=== PATIENT | female | born 1985 | race Asian ===

== ENCOUNTER 2016-09-15 10:14 | Emergency (ER) | payer OTHER ==
[~2016-09-15] VITALS: Ht 160 cm; Wt 81.8 kg
[2016-09-15 11:01] LABS: BASOPHILS % (AUTO) 0.2 % (0.0-2.0); EOSINOPHILS % (AUTO) 0.3 % (1.0-6.0); HEMATOCRIT 44.6 % (36-46); HEMOGLOBIN 14.5 g/dL (12.0-16.0); LYMPHOCYTES # (AUTO) 0.7 K/uL (1.0-4.8); LYMPHOCYTES % (AUTO) 9.7 % (22.0-44.0); MEAN CORPUSCULAR HEMOGLOBIN 27.5 pg (26.0-34.0); MEAN CORPUSCULAR HGB CONC 32.6 G/dL (31.0-37.0); MEAN CORPUSCULAR VOLUME 84 fL (80-100); MONOCYTES # (AUTO) 0.5 K/uL (0.1-1.0); MONOCYTES % (AUTO) 6.9 % (2.0-9.0); NEUTROPHILS # (AUTO) 6.1 K/uL (1.8-7.7); NEUTROPHILS % (AUTO) 82.9 % (40.0-70.0); PLATELET COUNT (AUTO) 311 K/uL (150-450); RED BLOOD CELL COUNT(AUTO) 5.29 MIL/uL (4.00-5.20); RED CELL DISTRIBUTION WIDTH 13.7 % (11.5-14.5); WHITE BLOOD COUNT (AUTO) 7.4 K/uL (4.5-11.0)
[2016-09-15 11:08] LABS: ANION GAP 9 mmol/L (8-16); CALCIUM, TOTAL 8.4 mg/dL (8.8-10.5); CARBON DIOXIDE 27 mmol/L (22-29); CHLORIDE 103 mmol/L (98-107); GLOMERULAR FILTR. RATE CALC > 60 mL/min (>60); POTASSIUM 3.7 mmol/L (3.5-5.1); SODIUM SERUM 139 mmol/L (136-145); UREA NITROGEN, BLOOD 9 mg/dL (7-18)
[2016-09-15 11:16] LABS: ALANINE AMINOTRANSFERASE 28 U/L (12-78); ALBUMIN 3.7 g/dL (3.4-5.0); ASPARTATE AMINOTRANSFERASE 23 U/L (15-37); BILIRUBIN,TOTAL 0.1 mg/dL (0.1-1.0); TOTAL PROTEIN, SERUM 8.7 g/dL (6.4-8.2)
[2016-09-15] MEDS ORDERED: PANTOPRAZOLE SODIUM 40 MG DR TABLET PO ONE (13:00)
[2016-09-15] MEDS ORDERED: DONNATAL/LIDOCAINE/MAALOX 55 ML BOTTLE PO ONE (13:00)
[2016-09-15] MEDS ORDERED: ONDANSETRON HCL 4 MG TABLET PO ONE (13:00)
[2016-09-15 13:14] VITALS: BP 111/78
== END 2016-09-15 13:55 | disposition home or self-care (01) ==
LOC: EEVIPCON 10:17 → EMS 10:17
DX: R10.13 Epigastric pain (principal)
CPT/HCPCS: 36415; 80053; 81002; 83690; 84703; 85025; 99284; Q0162; Z7610

== ENCOUNTER → 2017-04-30 | Outpatient (CLI) | payer OTHER ==
[2017-04-30 12:39] LABS: APPEARANCE,URINE CLEAR (CLEAR); GLUCOSE, URINE (UA) NEGATIVE (NEGATIVE); KETONES,URINE NEGATIVE (NEGATIVE); LEUKOCYTE ESTERASE ,URINE NEGATIVE (NEGATIVE); OCCULT BLOOD,URINE NEGATIVE (NEGATIVE); PROTEIN,URINE NEGATIVE (NEGATIVE)
[2017-04-30 12:43] LABS: ADD UA MICROSCOPIC NO
[2017-04-30 12:46] LABS: HEMOGLOBIN A1C 5.7 % (4.5-6.2)
[2017-04-30 12:53] LABS: BASOPHILS % (AUTO) 0.3 % (0.0-2.0); EOSINOPHILS % (AUTO) 2.3 % (1.0-6.0); HEMATOCRIT 42.3 % (36-46); HEMOGLOBIN 14.4 g/dL (12.0-16.0); LYMPHOCYTES # (AUTO) 2.2 K/uL (1.0-4.8); LYMPHOCYTES % (AUTO) 24.8 % (22.0-44.0); MEAN CORPUSCULAR HEMOGLOBIN 29.2 pg (26.0-34.0); MEAN CORPUSCULAR VOLUME 86 fL (80-100); MONOCYTES # (AUTO) 0.6 K/uL (0.1-1.0); MONOCYTES % (AUTO) 6.6 % (2.0-9.0); NEUTROPHILS # (AUTO) 5.8 K/uL (1.8-7.7); PLATELET COUNT (AUTO) 302 K/uL (150-450); RED BLOOD CELL COUNT(AUTO) 4.93 MIL/uL (4.00-5.20); RED CELL DISTRIBUTION WIDTH 14.1 % (11.5-14.5); WHITE BLOOD COUNT (AUTO) 8.7 K/uL (4.5-11.0)
[2017-04-30 13:03] LABS: ALANINE AMINOTRANSFERASE 26 U/L (12-78); ALBUMIN 3.7 g/dL (3.4-5.0); ANION GAP 9 mmol/L (8-16); ASPARTATE AMINOTRANSFERASE 25 U/L (15-37); BILIRUBIN,TOTAL 0.4 mg/dL (0.1-1.0); CALCIUM, TOTAL 8.6 mg/dL (8.8-10.5); CARBON DIOXIDE 24 mmol/L (22-29); CHLORIDE 102 mmol/L (98-107); CREATININE 0.74 mg/dL (0.60-1.30); GLOMERULAR FILTR. RATE CALC > 60 mL/min (>60); POTASSIUM 3.8 mmol/L (3.5-5.1); SODIUM SERUM 135 mmol/L (136-145); TOTAL PROTEIN, SERUM 8.5 g/dL (6.4-8.2); UREA NITROGEN, BLOOD 7 mg/dL (7-18)
[2017-04-30 14:06] LABS: THYROID STIMULATING HORMONE 1.53 uIU/mL (0.36-3.74)
== END | disposition home or self-care (01) ==
LOC: LABPV 10:15
PROVIDERS: ATTEND Internal Medicine
DX: Z79.899 Other long term (current) drug therapy (principal)
CPT/HCPCS: 83036; 84443; 87086

== ENCOUNTER → 2017-09-02 | Outpatient (CLI) | payer OTHER ==
[2017-09-02 17:08] LABS: BASOPHILS % (AUTO) 0.4 % (0.0-2.0); EOSINOPHILS % (AUTO) 2.1 % (1.0-6.0); HEMATOCRIT 40.9 % (36-46); HEMOGLOBIN 13.4 g/dL (12.0-16.0); LYMPHOCYTES # (AUTO) 2.5 K/uL (1.0-4.8); LYMPHOCYTES % (AUTO) 30.9 % (22.0-44.0); MEAN CORPUSCULAR HEMOGLOBIN 28.1 pg (26.0-34.0); MEAN CORPUSCULAR HGB CONC 32.6 G/dL (31.0-37.0); MEAN CORPUSCULAR VOLUME 86 fL (80-100); MONOCYTES # (AUTO) 0.7 K/uL (0.1-1.0); NEUTROPHILS # (AUTO) 4.6 K/uL (1.8-7.7); NEUTROPHILS % (AUTO) 57.6 % (40.0-70.0); PLATELET COUNT (AUTO) 336 K/uL (150-450); RED BLOOD CELL COUNT(AUTO) 4.75 MIL/uL (4.00-5.20); RED CELL DISTRIBUTION WIDTH 13.9 % (11.5-14.5)
[2017-09-02 17:49] LABS: VITAMIN D,TOTAL (25-0H) 12 ng/mL (30-100)
[2017-09-02 19:21] LABS: RAPID PLASMA REAGIN NONREACTIVE (NONREACTIVE)
[2017-09-02 19:25] LABS: RUBELLA SCREEN (IGG) IMMUNE (IMMUNE)
[2017-09-03 08:07] LABS: HIV 1-2 SCREEN 4TH GEN W/RFLX Non Reactive (Non Reactive)
== END | disposition home or self-care (01) ==
LOC: LABPV 14:49
PROVIDERS: ATTEND Obstetrics & Gynecology
DX: Z31.89 Encounter for other procreative management (principal)
CPT/HCPCS: 82306; 86592; 86762; 86787; 86803; 86850; 86900; 86901; 87086; 87340; 87389; 87491; 87591

== ENCOUNTER → 2017-10-04 | Outpatient (CLI) | payer OTHER | END | disposition home or self-care (01) | LOC: RADPV 11:27 | PROVIDERS: ATTEND Internal Medicine | DX: J84.10 Pulmonary fibrosis, unspecified (principal) ==

== ENCOUNTER 2019-03-04 19:33 | Inpatient (IN) | payer OTHER ==
[~2019-03-04] VITALS: Ht 160 cm; Wt 111.1 kg
[2019-03-04] MEDS ORDERED: RINGERS SOLUTION,LACTATED 1,000 ML IV PRN (21:01)
[2019-03-04] MEDS ORDERED: METOCLOPRAMIDE HCL 5 MG/ML 2 ML VIAL IVP PRN (21:15)
[2019-03-04] MEDS ORDERED: AZITHROMYCIN 250 MG TABLET PO ONE (21:15)
[2019-03-04] MEDS ORDERED: CITRIC ACID/SODIUM CITRATE 30 ML SOLUTION UDCUP PO PRN (21:15)
[2019-03-04 21:37] LABS: BASOPHILS % (AUTO) 0.4 % (0.0-2.0); EOSINOPHILS % (AUTO) 0.7 % (1.0-6.0); HEMATOCRIT 40.8 % (36-46); HEMOGLOBIN 13.5 g/dL (12.0-16.0); LYMPHOCYTES # (AUTO) 1.9 K/uL (1.0-4.8); LYMPHOCYTES % (AUTO) 17.3 % (22.0-44.0); MEAN CORPUSCULAR HEMOGLOBIN 30.4 pg (26.0-34.0); MEAN CORPUSCULAR HGB CONC 33.2 G/dL (31.0-37.0); MEAN CORPUSCULAR VOLUME 91 fL (80-100); MONOCYTES # (AUTO) 0.9 K/uL (0.1-1.0); MONOCYTES % (AUTO) 8.5 % (2.0-9.0); NEUTROPHILS # (AUTO) 7.9 K/uL (1.8-7.7); NEUTROPHILS % (AUTO) 73.1 % (40.0-70.0); PLATELET COUNT (AUTO)-OB 255 K/uL (150-450); RED BLOOD CELL COUNT(AUTO) 4.46 MIL/uL (4.00-5.20); RED CELL DISTRIBUTION WIDTH 14.4 % (11.5-14.5)
[2019-03-04] MEDS: BETAMETHASONE SOLUSPAN 6 MG/ML 5 ML VIAL IM SCH (22:19)
[2019-03-04] MEDS: AMPICILLIN SODIUM 2 GM/NS 100 ML IV SCH (22:23)
[2019-03-04] MEDS: RINGERS SOLUTION,LACTATED 1,000 ML IV SCH ×2 (22:24→23:48)
[2019-03-04 23:11] VITALS: BP 134/80
[2019-03-04] MEDS ORDERED: PNV11TAB PO (23:15)
[2019-03-05] MEDS ORDERED: NIFEdipine 10 MG CAPSULE PO ONE ×2 (00:30→01:15)
[2019-03-05] MEDS: RINGERS SOLUTION,LACTATED 1,000 ML IV SCH ×2 (04:20→14:49)
[2019-03-05] MEDS: AMPICILLIN SODIUM 2 GM/NS 100 ML IV SCH ×4 (04:21→22:02)
[2019-03-05] MEDS: OXYGEN THERAPY IH SCH ×2 (08:00→20:00)
[2019-03-05] MEDS: BETAMETHASONE SOLUSPAN 6 MG/ML 5 ML VIAL IM SCH (22:03)
[2019-03-06] MEDS: RINGERS SOLUTION,LACTATED 1,000 ML IV SCH ×3 (00:04→16:23)
[2019-03-06] MEDS: AMPICILLIN SODIUM 2 GM/NS 100 ML IV SCH ×4 (04:25→22:35)
[2019-03-06] MEDS: OXYGEN THERAPY IH SCH ×2 (08:00→20:00)
[2019-03-06] MEDS: BETAMETHASONE SOLUSPAN 6 MG/ML 5 ML VIAL IM SCH (21:15)
[2019-03-07] MEDS: RINGERS SOLUTION,LACTATED 1,000 ML IV SCH ×3 (00:15→16:17)
[2019-03-07] MEDS: AMPICILLIN SODIUM 2 GM/NS 100 ML IV SCH ×4 (04:46→22:22)
[2019-03-07] MEDS: OXYGEN THERAPY IH SCH ×2 (08:00→20:00)
[2019-03-07 13:42] LABS: BASOPHILS % (AUTO) 0.3 % (0.0-2.0); EOSINOPHILS % (AUTO) 0.4 % (1.0-6.0); HEMATOCRIT 37.6 % (36-46); HEMOGLOBIN 12.1 g/dL (12.0-16.0); LYMPHOCYTES # (AUTO) 1.6 K/uL (1.0-4.8); LYMPHOCYTES % (AUTO) 14.3 % (22.0-44.0); MEAN CORPUSCULAR HEMOGLOBIN 29.7 pg (26.0-34.0); MEAN CORPUSCULAR HGB CONC 32.1 G/dL (31.0-37.0); MEAN CORPUSCULAR VOLUME 93 fL (80-100); MONOCYTES % (AUTO) 8.4 % (2.0-9.0); NEUTROPHILS # (AUTO) 8.7 K/uL (1.8-7.7); NEUTROPHILS % (AUTO) 76.6 % (40.0-70.0); PLATELET COUNT (AUTO)-OB 223 K/uL (150-450); RED BLOOD CELL COUNT(AUTO) 4.07 MIL/uL (4.00-5.20)
[2019-03-07] MEDS: MISOPROSTOL 25 MCG TABLET VG SCH ×2 (13:59→18:00)
[2019-03-07] MEDS: BETAMETHASONE SOLUSPAN 6 MG/ML 5 ML VIAL IM SCH (21:15)
[2019-03-08] MEDS: RINGERS SOLUTION,LACTATED 1,000 ML IV SCH ×3 (02:36→21:01)
[2019-03-08] MEDS: MISOPROSTOL 25 MCG TABLET VG SCH ×2 (02:36→04:48)
[2019-03-08] MEDS: AMPICILLIN SODIUM 2 GM/NS 100 ML IV SCH (04:48)
[2019-03-08] MEDS ORDERED: ROPIVACAINE HCL/PF 0.2% 100 ML ED ONE ×2 (05:21→08:54)
[2019-03-08] MEDS ORDERED: OXYTOCIN 30 UNITS/LACT RINGERS 500 ML IV PRN (05:42)
[2019-03-08] MEDS: FentaNYL CITRATE-PF 100 MCG/2 ML VIAL IVP PRN ×2 (07:58→08:06)
[2019-03-08] MEDS: OXYGEN THERAPY IH SCH ×2 (08:00→20:00)
[2019-03-08] MEDS ORDERED: MINERAL OIL 30 ML UDCUP ONE (09:15)
[2019-03-08] MEDS ORDERED: LIDOCAINE/PF 1% 30 ML VIAL ONE (09:25)
[2019-03-08] MEDS ORDERED: MINERAL OIL 30 ML UDCUP VG ONE (10:15)
[2019-03-08] MEDS ORDERED: LIDOCAINE/PF 1% 30 ML VIAL INJ ONE (10:15)
[2019-03-08] MEDS ORDERED: OXYTOCIN 30 UNITS/LACT RINGERS 500 ML IV ONE (10:23)
[2019-03-08] MEDS ORDERED: LANOLIN 7 GM OINTMENT TP PRN (10:30)
[2019-03-08] MEDS ORDERED: OxyCODONE HCL/ACETAMINOPHEN 5-325 MG TABLET PO PRN ×2 (10:30)
[2019-03-08] MEDS ORDERED: MAGNESIUM HYDROXIDE SUSPENSION 30 ML UDCUP PO PRN (10:30)
[2019-03-08] MEDS ORDERED: GLYCERIN/WITCH HAZEL LEAF 40 PADS JAR TP PRN (10:30)
[2019-03-08] MEDS ORDERED: BENZOCAINE 20%/MENTHOL 56 GM SPRAY CANISTER TP PRN (10:30)
[2019-03-08] MEDS: IBUPROFEN 800 MG TABLET PO PRN (15:20)
[2019-03-09 05:50] LABS: BASOPHILS % (AUTO) 0.2 % (0.0-2.0); EOSINOPHILS % (AUTO) 0.9 % (1.0-6.0); HEMATOCRIT 37.2 % (36-46); HEMOGLOBIN 11.9 g/dL (12.0-16.0); LYMPHOCYTES # (AUTO) 2.3 K/uL (1.0-4.8); LYMPHOCYTES % (AUTO) 16.8 % (22.0-44.0); MEAN CORPUSCULAR VOLUME 94 fL (80-100); MONOCYTES % (AUTO) 7.3 % (2.0-9.0); NEUTROPHILS % (AUTO) 74.8 % (40.0-70.0); PLATELET COUNT (AUTO)-OB 223 K/uL (150-450); RED BLOOD CELL COUNT(AUTO) 3.97 MIL/uL (4.00-5.20); RED CELL DISTRIBUTION WIDTH 15.1 % (11.5-14.5)
[2019-03-09] MEDS: OXYGEN THERAPY IH SCH ×2 (08:00→20:00)
[2019-03-09] MEDS: IBUPROFEN 800 MG TABLET PO PRN (09:47)
[2019-03-10] MEDS ORDERED: MEASLES/MUMPS/RUBELLA VACCINE, LIVE 0.5 ML/VIAL SQ ONE (05:15)
[2019-03-10] MEDS ORDERED: DSS100 PO (08:45)
[2019-03-10] MEDS ORDERED: IBUP-2071 PO (08:45)
== END 2019-03-10 09:30 | disposition home or self-care (01) | DRG 807 ==
LOC: 4S 19:33 → OBSVTOIN 19:33
PROVIDERS: ADMIT Obstetrics & Gynecology; ATTEND Obstetrics & Gynecology
PROC: 10E0XZZ Delivery of Products of Conception, External Approach (ICD-10-PCS; principal; 2019-03-08)
PROC: 0KQM0ZZ Repair Perineum Muscle, Open Approach (ICD-10-PCS; 2019-03-08)
DX: O42.913 Preterm premature rupture of membranes, unspecified as to length of time between rupture and onset of labor, third trimester (principal); Z37.0 Single live birth; O70.1 Second degree perineal laceration during delivery; O69.81X0 Labor and delivery complicated by cord around neck, without compression, not applicable or unspecified; Z3A.35 35 weeks gestation of pregnancy
CPT/HCPCS: 76811; 76815; 86850; 86900; 86901; 89060; 90707; J0290; J0702; J2590; J2795; J3010; J3490; J7120

== ENCOUNTER → 2021-11-03 | Outpatient (CLI) | payer OTHER ==
[~2021-11-03] MED LIST: DSS100 PO; IBUP-2071 PO; PNV11TAB PO
== END | disposition home or self-care (01) ==
LOC: RADPV 08:53
PROVIDERS: ATTEND Internal Medicine
DX: R76.11 Nonspecific reaction to tuberculin skin test without active tuberculosis (principal); Z86.11 Personal history of tuberculosis
CPT/HCPCS: 71045